=== PATIENT | female | born 1980 | race Caucasian/White ===

== ENCOUNTER 2024-09-01 19:33 | Emergency (ER) | payer MEDICAID, SELFPAY ==
[2024-09-01 19:45] VITALS: BP 140/90; PULSE 75; TEMP 36.5; O2SAT 97; BMI 29.2
--- NOTE | 2024-09-01 19:49 | ECG_ITS ---
[facility] Test Date: 2024-09-01 Pat Name: AMBER MIRZA Department: Room: - Gender: Female Grinder Set Up Operator Jig: : 1980 Requested By: [id number] Order Number: [id number] Reading MD: KITA CHEEMA M.D. Measurements Intervals [place] Rate: 82 P: 56 IA: 146 QRS: 38 QRSD: 80 T: 21 QT: 388 QTc: 427 Interpretive Statements 1100 Sinus rhythm 4564 Twave abnormality, possible lateral ischemia 4664 Twave abnormality, possible inferior ischemia 9150 abnormal ECG No previous ECG available for comparison Electronically Signed On 09-01-2024 20:09:53 EDT by KITA CHEEMA M.D.
--- NOTE | 2024-09-01 19:52 | ED.PSYCH1 ---
Documented by User: ELOINA Mondragon 09/01/24 20:56 HPI - Psych General Chief Complaint: Psychiatric Symptoms Stated Complaint: SUICIDAL Time Seen by Provider: 09/01/24 19:41 Source: Reports patient Mode of arrival: ambulance History of Present Illness HPI Narrative: Patient is a 43-year-old female who presents to the ER with suicidal ideations. Patient states she does not want to live any longer and wants to kill herself. Patient states she has depression and it cannot be treated. She reports having 6 children and one of her children's fathers also committed suicide. She denies a specific plan. She was found with her car pulled off the side of the road and appears to be somewhat intoxicated. She is tearful when discussing her symptoms and getting into an argument with her boyfriend. She does not readily admit or deny alcohol use and continues to cry in the room but is easily redirected to discussion about herself and her family. She reports that her kids are with another male and are safe. She is tearful and expressing that she does not want to live any longer. MD complaint: suicidal ideation and feels depressed Onset (ago): unknown Duration: constant History of same: Yes ( [facility]) Relieving factors: none Exacerbating factors: alcohol Context: recent alcohol abuse Associated psychiatric symptoms: depression Associated symptoms: headache, shortness of breath and nausea Treatments prior to arrival: none If self harm: admits thoughts of self harm Related Data Home Medications ?Medication ?Instructions ?Recorded ?Confirmed citalopram 09/01/24 lisinopril 09/01/24 Allergies Allergy/AdvReac Type Severity Reaction Status Date / Time naproxen Allergy hives Verified 09/01/24 19:56 Review of Systems ROS Constitutional Denies: fever, chills or change in weight Eyes Denies: change in vision or blurry vision Ears, nose, mouth, and throat Denies: throat pain or neck pain Cardiovascular Denies: chest pain, palpitations or edema Respiratory Denies: shortness of breath, cough or wheezing Gastrointestinal Denies: abdominal pain, nausea or vomiting Genitourinary Denies: painful urination Musculoskeletal Denies: back pain, neck pain or extremity pain Integumentary/Breast Denies: rash, itching or redness Neurological Denies: headache Psychiatric Reports: anxiety, hopelessness, loss of interest and suicidal ideation Endocrine Denies: excessive urination Hematologic/Lymphatic Denies: easy bruising Exam Narrative Exam Narrative: Nurses notes and vital signs reviewed and patient is not hypoxic. General: The patient appears tearful, restless but verbally redirectable with conversation Skin: Warm, dry, no pallor noted. No evidence of rash or acute self injury Head: Normocephalic, atraumatic Neck: Supple, trachea mid-line, no tenderness, no lymphadenopathy Eye: Pupils are equal, round and reactive to light, EOMI , bilateral conjunctival injection Ears, Nose, Mouth, and Throat: TM are clear, normal light reflex, oral mucosa is moist, no posterior oropharynx erythema or hypertrophy, uvula is mid-line Cardiovascular: Regular Rate and Rhythm Respiratory: Patient is in no distress, no accessory muscle use, lungs are clear to auscultation, no wheezing, rales or rhonchi. Chest Wall: no tenderness Back: non-tender, no CVA tenderness Musculoskeletal: normal ROM, no tenderness, no swelling GI: Normal bowel sounds, no tenderness to palpation, no masses appreciated. No rebound, guarding, or rigidity noted. Neurological: A&O x4,, suspect alcohol intoxication Psychiatric: Tearful verbally expressing her desire to that she is depressed with suicidal ideations. Citing people in her life who have by suicide. Constitutional Vital Signs, click to edit/add: Last Vital Signs Temp 97.7 F 09/01/24 19:45 Pulse 61 09/02/24 04:10 Resp 16 09/02/24 04:10 BP 170/102 H 09/02/24 04:10 Pulse Ox 100 09/02/24 04:10 O2 Del Method Room Air 09/01/24 19:45 Course Vital Signs Vital signs: Vital Signs Temperature 97.7 F 09/01/24 19:45 Pulse Rate 75 09/01/24 19:45 Respiratory Rate 22 H 09/01/24 19:45 Blood Pressure 140/90 09/01/24 19:45 Pulse Oximetry 97 09/01/24 19:45 Oxygen Delivery Method Room Air 09/01/24 19:45 Temperature 97.7 F 09/01/24 19:45 Pulse Rate 61 09/02/24 04:10 Respiratory Rate 16 09/02/24 04:10 Blood Pressure 170/102 H 09/02/24 04:10 Pulse Oximetry 100 06/09/25 04:10 Oxygen Delivery Method Room Air 09/01/24 19:45 MDM - Psych MDM Narrative Medical decision making narrative: 43-year-old female with self-reported history of depression and suicidal ideation appears possibly intoxicated was found pulled off the side of the road in some grass and brought to the ER by EMS given her verbalization of self-harm. She reports being in an argument with her boyfriend and cites other family members who have by suicide stating that she does not want to live any longer. She is requesting to be released to go to her home in [place] and recites her address but we advised that we would need to get her medically cleared to speak with a mental health counselor and patient is agreeable to be given 50mg IV benadryl ( ativan on back order) to help with her acute anxiety surrounding the situation pending laboratory studies. Potassium was low at 3.0, she is ordered 50 mEq p.o. She is tolerating p.o. fluids. She appears to be calming with the IV Benadryl previously removed all of her leads requesting to speak to her family. Nursing staff did contact her family to make them aware of her presents here. Her EtOH is elevated at 230, we will repeat at 3 AM to assess for medical clearance for psychiatric consultation given her suicidal ideations. Lab Data Labs: Lab Results 09/01/24 09/01/24 09/02/24 Range/Units 19:40 19:50 03:32 WBC 4.9 (4.0-11.0) 10^3/uL RBC 4.34 (4.20-5.40) 10^6/uL Hgb 13.5 (12.0-16.0) g/dL Hct 39.2 (36.0-48.0) % MCV 90.3 (81.0-99.0) fL MCH 31.1 (26.7-34.0) pg MCHC 34.4 (29.9-35.2) g/dL RDW 12.9 (11.0-15.0) % Plt Count 193 (150-450) 10^3/uL MPV 10.2 (9.5-13.5) fL Neut % (Auto) 64.0 (43.0-75.0) % Lymph % (Auto) 26.2 (20.5-60.0) % [place] % (Auto) 8.0 (1.7-12.0) % Eos % (Auto) 1.0 (0.9-7.0) % Baso % (Auto) 0.4 (0.2-2.0) % Neut # (Auto) 3.1 (1.4-6.5) 10^3/uL Lymph # (Auto) 1.3 (1.2-3.8) 10^3/uL [place] # (Auto) 0.4 (0.3-0.8) 10^3/uL Eos # (Auto) 0.1 (0.0-0.7) 10^3/uL Baso # (Auto) 0.0 (0.0-0.1) 10^3/uL Abs Immat Gran (auto) 0.02 (0.00-0.03) 10^3/uL Imm/Tot Granulo (auto) 0.4 (0.0-0.5) % Sodium 144 (136-145) mmol/L Potassium 3.0 L (3.5-5.1) mmol/L Chloride 104 (98-107) mmol/L Carbon Dioxide 24.7 (21.0-32.0) mmol/L Anion Gap 18.3 BUN 8.0 (7.0-18.0) mg/dL Creatinine 0.61 (0.55-1.02) mg/dL Est GFR ( Amer) >60 (>=60 mL/min/1.73m^2) Est GFR (Non-Af Amer) >60 (>=60 mL/min/1.73m^2) BUN/Creatinine Ratio 13.1 Glucose 98 (74-106) mg/dL Calcium 9.1 (8.5-10.1) mg/dL Total Bilirubin 0.7 (0.2-1.0) mg/dL AST 20 (15-37) U/L ALT 27 (14-59) U/L Alkaline Phosphatase 106 (46-116) U/L Total Protein 7.9 (6.4-8.2) g/dL Albumin 3.9 (3.4-5.0) g/dL Globulin 4.0 g/dL Albumin/Globulin Ratio 1.0 Serum HCG, Qual Negative (NEGATIVE) Urine Color Lt. yellow (YELLOW) Urine Clarity Clear (CLEAR) Urine pH 6.0 (5.0-9.0) Ur Specific [place] <=1.005 A (1.005-1.025) Urine Protein Negative (NEG/TRACE) mg/dL Urine Glucose (UA) Negative (NEGATIVE) mg/dL Urine Ketones Negative (NEGATIVE) mg/dL Urine Occult Blood Moderate A (NEGATIVE) Urine Nitrite Negative (NEGATIVE) Urine Bilirubin Negative (NEGATIVE) Urine Urobilinogen 0.2 (0.2-1.0) EU/dL Ur Leukocyte Esterase Negative (NEGATIVE) Urine RBC None seen (0-2) #/HPF Urine WBC None seen (NONE SEEN) #/HPF Ur Squamous Epith Cells None seen (NONE/RARE) #/LPF Urine Crystals None seen (None Seen) #/HPF Urine Bacteria None seen (NONE SEEN) #/HPF Urine Casts None seen (NONE SEEN) #/LPF Urine Mucus None seen (NONE SEEN) Ur Culture Indicated? No Salicylates <2.8 (<=19.9) mg/dL Urine Opiates Screen Negative (NEGATIVE) Ur Buprenorphine Scrn Negative (NEGATIVE) Ur Oxycodone Screen Negative (NEGATIVE) Urine Methadone Screen Negative (NEGATIVE) Acetaminophen <2.0 L (10.0-30.0) ug/mL Ur Barbiturates Screen Negative (NEGATIVE) U Tricyclic Antidepress Negative (NEGATIVE) Ur Phencyclidine Scrn Negative (NEGATIVE) Ur Amphetamines Screen Negative (NEGATIVE) U Methamphetamines Scrn Negative (NEGATIVE) U Benzodiazepines Scrn Negative (NEGATIVE) Urine Cocaine Screen Negative (NEGATIVE) U Cannabinoids Screen Positive A (NEGATIVE) Ethanol Quant 230 49 mg/dL ECG Data Attestation: I personally reviewed and interpreted this ECG as follows: Interpretation: EKG interpretation: Emergency Department physician interpretation, normal sinus rhythm 82bpm , no ectopy, no ST segment elevation, normal axis. Discharge Plan Discharge Patient Disposition: Still a Patient Documented by User: Trent Lazcano MD 06/09/25 06:33 HPI - Psych General Chief Complaint: Psychiatric Symptoms Stated Complaint: SUICIDAL Time Seen by Provider: 09/01/24 19:41 Related Data Home Medications ?Medication ?Instructions ?Recorded ?Confirmed citalopram 09/01/24 lisinopril 09/01/24 Allergies Allergy/AdvReac Type Severity Reaction Status Date / Time naproxen Allergy hives Verified 09/01/24 19:56 Exam Constitutional Vital Signs, click to edit/add: Last Vital Signs Temp 97.7 F 09/01/24 19:45 Pulse 61 09/02/24 04:10 Resp 16 09/02/24 04:10 BP 170/102 H 09/02/24 04:10 Pulse Ox 100 09/02/24 04:10 O2 Del Method Room Air 09/01/24 19:45 Course Vital Signs Vital signs: Vital Signs Temperature 97.7 F 09/01/24 19:45 Pulse Rate 75 09/01/24 19:45 Respiratory Rate 22 H 09/01/24 19:45 Blood Pressure 140/90 09/01/24 19:45 Pulse Oximetry 97 09/01/24 19:45 Oxygen Delivery Method Room Air 09/01/24 19:45 Temperature 97.7 F 09/01/24 19:45 Pulse Rate 61 09/02/24 04:10 Respiratory Rate 16 09/02/24 04:10 Blood Pressure 170/102 H 09/02/24 04:10 Pulse Oximetry 100 09/02/24 04:10 Oxygen Delivery Method Room Air 09/01/24 19:45 MDM - Psych MDM Narrative Medical decision making narrative: 43-year-old female with self-reported history of depression and suicidal ideation appears possibly intoxicated was found pulled off the side of the road in some grass and brought to the ER by EMS given her verbalization of self-harm. She reports being in an argument with her boyfriend and cites other family members who have by suicide stating that she does not want to live any longer. She is requesting to be released to go to her home in [place] and recites her address but we advised that we would need to get her medically cleared to speak with a mental health counselor and patient is agreeable to be given 50mg IV benadryl ( ativan on back order) to help with her acute anxiety surrounding the situation pending laboratory studies. Potassium was low at 3.0, she is ordered 50 mEq p.o. She is tolerating p.o. fluids. She appears to be calming with the IV Benadryl previously removed all of her leads requesting to speak to her family. Nursing staff did contact her family to make them aware of her presents here. Her EtOH is elevated at 230, we will repeat at 3 AM to assess for medical clearance for psychiatric consultation given her suicidal ideations. patient has remained cooperative and resting. waiting for her to speak to mental health later this AM. Care transferred to [facility] physician at change of shift Lab Data Labs: Lab Results 09/01/24 09/01/24 09/02/24 Range/Units 19:40 19:50 03:32 WBC 4.9 (4.0-11.0) 10^3/uL RBC 4.34 (4.20-5.40) 10^6/uL Hgb 13.5 (12.0-16.0) g/dL Hct 39.2 (36.0-48.0) % MCV 90.3 (81.0-99.0) fL MCH 31.1 (26.7-34.0) pg MCHC 34.4 (29.9-35.2) g/dL RDW 12.9 (11.0-15.0) % Plt Count 193 (150-450) 10^3/uL MPV 10.2 (9.5-13.5) fL Neut % (Auto) 64.0 (43.0-75.0) % Lymph % (Auto) 26.2 (20.5-60.0) % [place] % (Auto) 8.0 (1.7-12.0) % Eos % (Auto) 1.0 (0.9-7.0) % Baso % (Auto) 0.4 (0.2-2.0) % Neut # (Auto) 3.1 (1.4-6.5) 10^3/uL Lymph # (Auto) 1.3 (1.2-3.8) 10^3/uL [place] # (Auto) 0.4 (0.3-0.8) 10^3/uL Eos # (Auto) 0.1 (0.0-0.7) 10^3/uL Baso # (Auto) 0.0 (0.0-0.1) 10^3/uL Abs Immat Gran (auto) 0.02 (0.00-0.03) 10^3/uL Imm/Tot Granulo (auto) 0.4 (0.0-0.5) % Sodium 144 (136-145) mmol/L Potassium 3.0 L (3.5-5.1) mmol/L Chloride 104 (98-107) mmol/L Carbon Dioxide 24.7 (21.0-32.0) mmol/L Anion Gap 18.3 BUN 8.0 (7.0-18.0) mg/dL Creatinine 0.61 (0.55-1.02) mg/dL Est GFR ( Amer) >60 (>=60 mL/min/1.73m^2) Est GFR (Non-Af Amer) >60 (>=60 mL/min/1.73m^2) BUN/Creatinine Ratio 13.1 Glucose 98 (74-106) mg/dL Calcium 9.1 (8.5-10.1) mg/dL Total Bilirubin 0.7 (0.2-1.0) mg/dL AST 20 (15-37) U/L ALT 27 (14-59) U/L Alkaline Phosphatase 106 (46-116) U/L Total Protein 7.9 (6.4-8.2) g/dL Albumin 3.9 (3.4-5.0) g/dL Globulin 4.0 g/dL Albumin/Globulin Ratio 1.0 Serum HCG, Qual Negative (NEGATIVE) Urine Color Lt. yellow (YELLOW) Urine Clarity Clear (CLEAR) Urine pH 6.0 (5.0-9.0) Ur Specific [place] <=1.005 A (1.005-1.025) Urine Protein Negative (NEG/TRACE) mg/dL Urine Glucose (UA) Negative (NEGATIVE) mg/dL Urine Ketones Negative (NEGATIVE) mg/dL Urine Occult Blood Moderate A (NEGATIVE) Urine Nitrite Negative (NEGATIVE) Urine Bilirubin Negative (NEGATIVE) Urine Urobilinogen 0.2 (0.2-1.0) EU/dL Ur Leukocyte Esterase Negative (NEGATIVE) Urine RBC None seen (0-2) #/HPF Urine WBC None seen (NONE SEEN) #/HPF Ur Squamous Epith Cells None seen (NONE/RARE) #/LPF Urine Crystals None seen (None Seen) #/HPF Urine Bacteria None seen (NONE SEEN) #/HPF Urine Casts None seen (NONE SEEN) #/LPF Urine Mucus None seen (NONE SEEN) Ur Culture Indicated? No Salicylates <2.8 (<=19.9) mg/dL Urine Opiates Screen Negative (NEGATIVE) Ur Buprenorphine Scrn Negative (NEGATIVE) Ur Oxycodone Screen Negative (NEGATIVE) Urine Methadone Screen Negative (NEGATIVE) Acetaminophen <2.0 L (10.0-30.0) ug/mL Ur Barbiturates Screen Negative (NEGATIVE) U Tricyclic Antidepress Negative (NEGATIVE) Ur Phencyclidine Scrn Negative (NEGATIVE) Ur Amphetamines Screen Negative (NEGATIVE) U Methamphetamines Scrn Negative (NEGATIVE) U Benzodiazepines Scrn Negative (NEGATIVE) Urine Cocaine Screen Negative (NEGATIVE) U Cannabinoids Screen Positive A (NEGATIVE) Ethanol Quant 230 49 mg/dL Discharge Plan Discharge Patient Disposition: Still a Patient
[2024-09-01 20:07] LABS: Basophils Percent Auto 0.4 % (0.2-2.0); Eosinophils Absolute Auto 0.1 10^3/uL (0.0-0.7); Hematocrit 39.2 % (36.0-48.0); Hemoglobin 13.5 g/dL (12.0-16.0); Immature Granulocytes Abs Auto 0.02 10^3/uL (0.00-0.03); Immature Granulocytes Pct Auto 0.4 % (0.0-0.5); Lymphocytes Absolute Auto 1.3 10^3/uL (1.2-3.8); Lymphocytes Percent Auto 26.2 % (20.5-60.0); Mean Corpuscular HGB Conc 34.4 g/dL (29.9-35.2); Mean Corpuscular Hemoglobin 31.1 pg (26.7-34.0); Mean Corpuscular Volume 90.3 fL (81.0-99.0); Mean Platelet Volume 10.2 fL (9.5-13.5); Monocytes Absolute Auto 0.4 10^3/uL (0.3-0.8); Neutrophils Absolute Auto 3.1 10^3/uL (1.4-6.5); Platelet Count 193 10^3/uL (150-450); Red Blood Count 4.34 10^6/uL (4.20-5.40); Red Cell Distribution Width 12.9 % (11.0-15.0); White Blood Count 4.9 10^3/uL (4.0-11.0)
[2024-09-01 20:10] LABS: Bilirubin Urine NEGATIVE (NEGATIVE); Blood Urine MODERATE (NEGATIVE); Clarity Urine CLEAR (CLEAR); Color Urine LT. YELLOW (YELLOW); Glucose Urine UA NEGATIVE (NEGATIVE); Ketones Urine NEGATIVE (NEGATIVE); Leukocyte Esterase Urine NEGATIVE (NEGATIVE); Nitrite Urine NEGATIVE (NEGATIVE); Protein Urine NEGATIVE (NEG/TRACE); Specific Gravity Urine <=1.005 (1.005-1.025); Urobilinogen Urine 0.2 EU/dL (0.2-1.0)
[2024-09-01 20:16] LABS: Bacteria Urine NONE SEEN #/HPF (NONE SEEN); Cast Seen? NONE SEEN #/LPF (NONE SEEN); Crystals Seen? None Seen #/HPF (None Seen); Mucus Urine NONE SEEN (NONE SEEN); RBC Urine NONE SEEN #/HPF (0-2); Squamous Epithelial Cell Urine NONE SEEN #/LPF (NONE/RARE); Urine Culture Indicated NO; WBC Urine NONE SEEN #/HPF (NONE SEEN)
[2024-09-01 20:17] LABS: HCG Qualitative NEGATIVE (NEGATIVE); Internal Control Within Normal Limits
[2024-09-01 20:18] LABS: Amphetamine Screen Urine NEGATIVE (NEGATIVE); Barbiturates Screen Urine NEGATIVE (NEGATIVE); Benzodiazepines Screen Urine NEGATIVE (NEGATIVE); Buprenorphine Screen Urine NEGATIVE (NEGATIVE); Cannabinoid Screen Urine POSITIVE (NEGATIVE); Cocaine Screen Urine NEGATIVE (NEGATIVE); Methadone Screen Urine NEGATIVE (NEGATIVE); Methamphetamines Screen Urine NEGATIVE (NEGATIVE); Opiate Screen Urine NEGATIVE (NEGATIVE); Oxycodone Screen Urine NEGATIVE (NEGATIVE); Phencyclidine Screen Urine NEGATIVE (NEGATIVE); Tricyclic Antidepressant Urine NEGATIVE (NEGATIVE)
[2024-09-01 20:26] LABS: Alanine Aminotransferase 27 U/L (14-59); Albumin Level 3.9 g/dL (3.4-5.0); Alkaline Phosphatase 106 U/L (46-116); Anion Gap 18.3; Aspartate Amino Transferase 20 U/L (15-37); BUN Creatinine Ratio 13.1; Bilirubin Total 0.7 mg/dL (0.2-1.0); Calcium 9.1 mg/dL (8.5-10.1); Carbon Dioxide 24.7 mmol/L (21.0-32.0); Chloride 104 mmol/L (98-107); Estimated GFR (African America >60 (>=60 mL/min/1.73m^2); Estimated GFR (Non-African Ame >60 (>=60 mL/min/1.73m^2); Ethanol 230 mg/dL; Glucose 98 mg/dL (74-106); Salicylate <2.8 mg/dL (<=19.9); Sodium 144 mmol/L (136-145); Total Protein 7.9 g/dL (6.4-8.2)
[2024-09-01 20:28] LABS: Acetaminophen <2.0 ug/mL (10.0-30.0)
[2024-09-01] MEDS: DIPHENHYDRAMINE HCL 50 MG/ML VIAL IVP (20:28)
--- OUTSIDE RECORDS SUMMARY | 2024-09-01 20:33 | XMS_ITS | Encounter Summary ---
Author Organization [facility] Address [address] [place] [address] Care Team Providers Care Shirt Sewer Name Role Phone SharonaAugieharley ENGLAND Primary Care Provider [phone] Brittany Moss PENSIONHOLDER INFORMATION CLERK Unavailable Unavailable Khushi Hsu NP Primary Care Provider [phone] Source Comments In the event this information is protected by the Federal Confidentiality of Alcohol and Drug AbusePatient Records regulations: The Federal rules restrict any use of the information to criminally investigate or prosecute any alcohol or drug abuse patient.[facility] Encounter Details Date Type Department Care Team (Late st Contact Info) Description 04/21/2021 [place] [address] Provider, [facility] MRI Screening Questionnaire Completion Required Social History Tobacco Use Types Packs/Day Years Used Date Smoking Tobacco: Never Smokeless Tobacco: Never Alcohol Use Standard Drinks/Week Comments Not Currently 0 (1 standard drink = 0.6 oz pur e alcohol) Overall Financial Resource Strain (CARDIA) Answe r Date Recorded How hard is it for you to pa y for the very basics like food, housing, medical care, and heating? Not hard at all 12/25/2019 PHQ-2 Answer Date Recorded PHQ-2 score 2 11/18/2020 Hunger Vital Sign Answer Date Recorded Within the past 12 months, y ou worried that your food would run out before you got the money to buy more. Never true 12/25/19 20 Within the past 12 months, t he food you bought just didn't last and you didn't have money to get more. Never true 12/25/2019 PRAPARE - Transportation Answer Date Re corded In the past 12 months, has l ack of transportation kept you from medical appointments or from getting medications? No 11/27 In the past 12 months, has l ack of transportation kept you from meetings, work, or from getting things needed for daily living? No 12/25/2019 Area Deprivation Index Answer Date Sohail rded National Score (1-100), lower number is lower ri sk Not on file 03/01/2020 State Score (1-10), lower number is lower risk N ot on file 03/01/2020 Data from: https://www.neighborhoodatlas.medicine.[facility].edu/. Last address used for calculation Not on file 03/01/2020 Comments No Sex and Gender Information Value Date Recorded Sex Assigned at Female 04/09/2021 3:05 AM EST Legal Sex Female 8:05 AM EST Gender Identity Female 04/09/2021 3:05 AM EST Sexual Orientation Straight 04/09/2021 3: 05 AM EST documented as of this encounter Functional Status * Are you deaf or do you have serious difficulty hearing? Answer Date of Assessment Author No 10/07/2020 5:48 PM Ally Ocasio RN * Are you blind or do you have serious difficulty seeing, even when wearing glasses? Answer Date of Assessment Author No 10/07/2020 5:48 PM Ally Ocasio RN * Do you have serious difficulty walking or climbing stairs? Answer Date of Assessment Author No 10/07/2020 5:48 PM Ally Ocasio RN * Do you have difficulty dressing or bathing? Answer Date of Assessment Author No 10/07/2020 5:48 PM Ally Ocasio RN * Because of a physical, mental, or emotional condition, do you have difficulty doing errands alone such as visiting a doctor's office or shopping? Answer Date of Assessment Author No 10/07/2020 5:48 PM EDT Ally Contreras RN documented as of this encounter Mental Status * Because of a physical, mental, or emotional condition, do you have serious difficulty concentrating, remembering, or making decisions? Answer Entry Date Author No 10/07/2020 5:48 PM EDT Ally Contreras RN documented in this encounter Plan of Treatment Upcoming Encounters Date Type Department Care Team (Latest Contact Info) Description 10/24/2024 3:00 PM EDT Visit (SP) Office Hematology/Oncology [address] [place] [address] Wu Bustos MD [address] [place] [address] [place] [address] NEW PATIENT ADDED ON PER DR BUSTOS // AGREED TO SEE PATIENT documented as of this encounter Visit Diagnoses Not on filedocumented in this encounter Care Teams Shirt Sewer Relationship Specialty Start Date End Date Mercedes Tabor CNP [address] [place] [address] PCP - General Internal Medicine 11/12/20 07/27/21 Khushi Hsu REGULATORY COMPLIANCE MANAGER [address] [place] [address] PCP - General 07/28/21 Brittany Moss LSW Dry Cleaning Counter Clerk 12/02/20 documented as of this encounter
--- OUTSIDE RECORDS SUMMARY | 2024-09-01 20:33 | XMS_ITS | Encounter Summary ---
Author Organization [facility] Address [address] [place] [address] Care Team Providers Care Mononitrotoluene Operator Name Role Phone Pcp, Betina LIME SLAKER Primary Care Provider UnavailMercedes Medrano CNP Primary Care Provider [phone] Brittany MossW Unavailable Unavailable Khushi Hsu NP Primary Care Provider [phone] Source Comments In the event this information is protected by the Federal Confidentiality of Alcohol and Drug AbusePatient Records regulations: The Federal rules restrict any use of the information to criminally investigate or prosecute any alcohol or drug abuse patient.[facility] Encounter Details Date Type Department Care Team (Late st Contact Info) Description 09/15/2020 Patient Msg [facility] [address] [place] [address] Latisha Aponte LSW Making contact Social History Tobacco Use Types Packs/Day Years [...] 12/25/2019 PHQ-2 Answer Date Recorded PHQ-2 score 5 08/19/2020 Hunger Vital Sign Answer Date Recorded Within [...] N ot on file 03/01/2020 Data from: https://www.neighborhoodatlas.medicine.[facility]/. Last address used for calculation Not on file 03/01/2020 Comments No Sex and Gender Information Value Date Recorded Sex Assigned at Female 04/09/2021 3:05 AM EST Legal Sex Female 8:05 AM EST Gender Identity Female 04/09/2021 3:05 AM EST Sexual Orientation Straight 04/09/2021 3: 05 AM EST COVID-19 Exposure Response Date Recorded In the last month, have you been in contact with someone who was confirmed or suspected to have Coronavirus / COVID-19? No / Unsure 09/09/2020 3:24 PM EDT documented as of this encounter Functional Status * Are you deaf or do you have serious difficulty hearing? Answer Date of Assessment Author No 01/05/2020 4:41 PM EDT Milagros Michelle (Rn), RN * Are you blind or do you have serious difficulty seeing, even when wearing glasses? Answer Date of Assessment Author No 01/05/2020 4:41 PM EDT Milagros Michelle (Rn), RN * Do you have serious difficulty walking or climbing stairs? Answer Date of Assessment Author No 01/05/2020 4:41 PM EDT Milagros Michelle (Rn), RN * Do you have difficulty dressing or bathing? Answer Date of Assessment Author No 01/05/2020 4:41 PM EDT Milagros Michelle (Rn), RN * Because of a physical, mental, or emotional condition, do you have difficulty doing errands alone such as visiting a doctor's office or shopping? Answer Date of Assessment Author No 01/05/2020 4:41 PM EDT Milagros Michelle (Rn), RN documented as of this encounter Mental Status * Because of a physical, mental, or emotional condition, do you have serious difficulty concentrating, remembering, or making decisions? Answer Entry Date Author No 01/05/2020 4:41 PM LUIST Milagros Michelle (Rn), RN documented in this encounter Plan of Treatment Upcoming Encounters Date Type Department Care Team (Latest Contact Info) Description 10/24/2024 3:00 PM EDT Visit (SP) Office Hematology/Oncology [address] [place] [address] [place], [place] [id number] Wu Bustos MD [address] [place] [address] [place] [address] NEW PATIENT ADDED ON PER DR BUSTOS // AGREED TO SEE PATIENT documented as of this encounter Visit Diagnoses Not on filedocumented in this encounter Care Teams Mononitrotoluene Operator Relationship Specialty Start Date End Date Pcp, LES Moffett PCP - General 08/28/20 11/11/20 Mercedes Tabor, DEVELOPMENT EDUCATOR [address] [address] PCP - General Internal Medicine 11/12/20 07/27/21 Khushi Hsu, PAINTING INSTRUCTOR [address] [place] [address] PCP - General 07/28/21 Brittany Moss LSW Security Associate 12/02/20 documented as of this encounter
--- OUTSIDE RECORDS SUMMARY | 2024-09-01 20:33 | XMS_ITS | Clinical Summary ---
Author Organization [facility] Address [address] [place] [address] Care Team Providers Care Printing Pressman Name Role Phone Brittany Moss Unavailable Unavailable Khushi Hsu INFORMATION MANAGEMENT MANAGER Primary Care Provider [phone] Allergies No known active allergies Medications clonazePAM (KLONOPIN) 0.5 mg tablet Take 0.5 mg by mouth twice daily as needed. Active docusate sodium (COLACE) 100 mg capsule Take 1 capsule by mouth twice daily as needed for constipation. (Take twice daily while you are on pain medications to prevent constipation). 30 capsule 1 Active diclofenac, EC, (VOLTAREN) 75 mg EC tablet Take 1 tablet by mouth twice daily as needed (for pain.). 28 tablet 1 Active citalopram (CELEXA) 20 mg tablet Take 20 mg by mouth daily at bedtime. Take 1 tablet at bedtime with celexa 10 mg to =30 mg 1 Active lisinopril (ZESTRIL, PRINIVIL) 10 mg tablet Take 1 tablet by mouth once daily. 1 Active citalopram hydrobromide (CELEXA) 10 mg tablet Take 10 mg by mouth once daily. 1 tablet at bedtime with celexa 20 mg tablet to =30mg Active ondansetron (ZOFRAN) 4 mg tablet Take 1 tablet by mouth every 8 hours as needed for nausea/vomiting . 30 tablet 1 Active CARAFATE 100 mg/mL suspension 1 Active gabapentin (NEURONTIN) 300 mg capsule TAKE 1 CAPSULE BY MOUTH ONCE DAILY FOR 3 DAYS THEN 1 CAPSULE TWICE DAILY FOR 3 DAYS THEN UPDATE 1 Active oxyCODONE-acetam inophen (PERCOCET 10) 10-325 mg tablet Take 1 tablet by mouth every 6 hours as needed. 1 Active hydroCHLOROthiaz chadd 12.5 mg tablet take 1 tablet by mouth once daily in the morning for 30 days 3 Active baclofen 10 mg tablet 1 tablet as needed Orally Twice a day 3 Active naproxen (NAPROSYN) 500 mg tablet 1 tablet with food as needed Orally once a day 3 Active Active Problems Problem Noted Date Diagnosed Date Obesity, Class I, BMI 30-34.9 10/06/2020 Acute postoperative pain 01/02/2020 Assessment & Plan (10/06/2020 9:22 AM EDT): Assessment: Acute post-operative pain PLAN: Pain control continue present analgesic regimen Monitor Assessment & Plan (01/02/2020 11:10 AM EDT): Assessment: Acute postop pain PLAN: -PT/OT eval. -Monitor: signs, symptoms, disease progression, disease regression. -Evaluate: test results, medication effectiveness, response to treatment. -Pain control: analgesics titrated per consultation with Dr. Prashanth Tobar -Plan discussed with Dr. 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 -Ambulate pt 3-4 x daily as able. -Monitor: signs, symptoms, disease progression, disease regression. -Evaluate: test results, medication effectiveness, response to treatment. -Pain control: analgesics titrated per consultation with Dr. Prashanth Tobar -Plan discussed with Dr. Prashanth TAPIA planning. Planned Date of Discharge: Approximately: Monday Discharge Disposition: [facility] Assessment & Plan (01/02/2020 10:47 AM EDT): Assessment: Thoracic spine mass with cord compresion PLAN: -PT/OT continue -Out of bed to chair for meals. -Ambulate pt 3-4 x daily as able. -Monitor: signs, symptoms, disease progression, disease regression. -Evaluate: test results, medication effectiveness, response to treatment. -Pain control: analgesics titrated per consultation with Dr. Prashanth Tobar -Plan discussed with Dr. Prashanth TAPIA planning. Planned Date of Discharge: Approximately 3 - 5 days Discharge Disposition: Unknown Assessment & Plan (01/01/2020 11:40 AM EDT): Assessment: Thoracic spine mass with cord compresion PLAN: -NPO for OR today. -Out of bed to chair for meals. -Ambulate pt 3-4 x daily as able. -Monitor: signs, symptoms, disease progression, disease regression. -Evaluate: test results, medication effectiveness, response to treatment. -Pain control: analgesics titrated per consultation with Dr. Prashanth Tobar -Plan discussed with Dr. Prashanth TAPIA planning. Planned Date of Discharge: Approximately 3 - 5 days Discharge Disposition: Unknown Assessment & Plan (12/31/2019 3:39 PM EDT): Assessment: Thoracic spine mass with cord compresion PLAN: -NPO for OR today. -Out of bed to chair for meals. -Ambulate pt 3-4 x daily as able. -Monitor: signs, symptoms, disease progression, disease regression. -Evaluate: test results, medication effectiveness, response to treatment. -Pain control: analgesics titrated per consultation with Dr. Prashanth Tobar -Plan discussed with Dr. Prashanth TAPIA planning. Planned Date of Discharge: Approximately 3 - 5 days Discharge Disposition: Unknown Assessment & Plan (12/30/2019 9:48 AM EDT): Assessment: Thoracic spine mass with cord compresion PLAN: -NPO for OR today. -Out of bed to chair for meals. -Ambulate pt 3-4 x daily as able. -Monitor: signs, symptoms, disease progression, disease regression. -Evaluate: test results, medication effectiveness, response to treatment. -Pain control: analgesics titrated per consultation with Dr. Prashanth Tobar -Plan discussed with Dr. Prashanth TAPIA planning. Planned Date of Discharge: Approximately 3 - 5 days Discharge Disposition: Unknown Assessment & Plan (12/27/2019 1:20 PM EDT): Assessment: Thoracic spine mass with cord compresion PLAN: -Out of bed to chair for meals. -Ambulate pt 3-4 x daily as able. -Monitor: signs, symptoms, disease progression, disease regression. -Evaluate: test results, medication effectiveness, response to treatment. -Pain control: analgesics titrated per consultation with Dr. Prashanth Tobar -Plan discussed with Dr. Prashanth TAPIA planning. Planned Date of Discharge: Approximately 3 - 5 days Discharge Disposition: Unknown Assessment & Plan (12/26/2019 12:36 PM EDT): Assessment: Thoracic spine mass with cord compresion PLAN: -Out of bed to chair for meals. -Ambulate pt 3-4 x daily as able. -Monitor: signs, symptoms, disease progression, disease regression. -Evaluate: test results, medication effectiveness, response to treatment. -Pain control: analgesics titrated per consultation with Dr. Prashanth Tobar -Plan discussed with Dr. Prashanth TAPIA planning. Planned Date of Discharge: Approximately 3 - 5 days Discharge Disposition: Unknown Assessment & Plan (12/25/2019 3:49 AM EDT): Assessment: BLE weakness and numbness: tumor vs abscess MRI: Large homogeneously enhancing dural or epidural masslike abnormality measuring around 6 cm in length and 12.5 mm in thickness, located along the posterior aspect of the spinal canal from T7 through T10 causing severe anterior displacement and compression of the spinal cord There is severe edema signal and enhancement within the spinal cord at these levels, perhaps related to cord compression and edema and myelopathy The appearance is most suggestive of a large meningioma. Hematoma, infection, lymphoproliferative disorder or metastatic disease is considered less likely PLAN: -Neurosurgery to evaluate patient. -Primary team recommended to continue vancomycin, flagyl and cefepime. -higher MAP goals Anxiety 12/25/2019 Assessment & Plan (10/06/2020 9:22 AM EDT): Assessment: POA PLAN: Continue home Rx/regimen Assessment & Plan (12/25/2019 3:32 AM EDT): Assessment: Hx of anxiety/depression on Citalopram PLAN: -Continue home Citalopram HTN (hypertension) 12/25/2019 Assessment & Plan (09/10/2020 6:12 AM EDT): 194/107 today, asymptomatic, no current meds Upon reviewing BP results since 10/2019, BP has been running high consistently since then Discussed with patient that BP needs to be better controlled, offered to set up primary care at [facility] but patient prefers to see home PCP this week. Given letter to give to PCP requesting office note and plan to be faxed back to us. Understands elective surgery could be canceled if BP not better controlled Advised to go to ER if developing any symptoms such as CP, SOB, TO, blurry vision. Assessment & Plan (01/02/2020 10:47 AM EDT): Assessment: HTN PLAN: -Hydralazine 12.5 mg PO q8h PRN for SBP > 160. -Monitor: signs, symptoms, disease progression, disease regression. -Evaluate: medication effectiveness, response to treatment. Assessment & Plan (12/31/2019 3:39 PM EDT): Assessment: HTN PLAN: -Hydralazine 12.5 mg PO q8h PRN for SBP > 160. -Monitor: signs, symptoms, disease progression, disease regression. -Evaluate: medication effectiveness, response to treatment. Assessment & Plan (12/30/2019 9:48 AM EDT): Assessment: HTN PLAN: -Hydralazine 12.5 mg PO q8h PRN for SBP > 160. -Monitor: signs, symptoms, disease progression, disease regression. -Evaluate: medication effectiveness, response to treatment. Assessment & Plan (12/27/2019 1:20 PM EDT): Assessment: HTN PLAN: -Hydralazine 12.5 mg PO q8h PRN for SBP > 160. -Monitor: signs, symptoms, disease progression, disease regression. -Evaluate: medication effectiveness, response to treatment. Assessment & Plan (12/26/2019 12:26 PM EDT): Assessment: HTN PLAN: -Hydralazine 12.5 mg PO q8h PRN for SBP > 160. -Monitor: signs, symptoms, disease progression, disease regression. -Evaluate: medication effectiveness, response to treatment. Assessment & Plan (12/25/2019 3:49 AM EDT): Assessment: not on any medications for HTN at home. PLAN: -Continue to monitor -MAP goal >65 -PRN Labetalol. Tooth infection 12/25/2019 Assessment & Plan (01/02/2020 10:48 AM EDT): Assessment: Dental abscess PLAN: -f/u on ID recs. Appreciate your assistance. -Continue Augmentin 875 mg PO bid. -Monitor: signs, symptoms, disease progression, disease regression. -Evaluate: medication effectiveness, response to treatment. Assessment & Plan (12/31/2019 3:39 PM EDT): Assessment: Dental abscess PLAN: -f/u on ID recs. Appreciate your assistance. -Continue Augmentin 875 mg PO bid. -Monitor: signs, symptoms, disease progression, disease regression. -Evaluate: medication effectiveness, response to treatment. Assessment & Plan (12/30/2019 9:49 AM EDT): Assessment: Dental abscess PLAN: -f/u on ID recs. Appreciate your assistance. -Continue Augmentin 875 mg PO bid. -Monitor: signs, symptoms, disease progression, disease regression. -Evaluate: medication effectiveness, response to treatment. Assessment & Plan (12/27/2019 1:20 PM EDT): Assessment: Dental abscess PLAN: -f/u on ID recs. Appreciate your assistance. -Continue IV cefepime and Flagyl. -Monitor: signs, symptoms, disease progression, disease regression. -Evaluate: medication effectiveness, response to treatment. Assessment & Plan (12/26/2019 12:29 PM EDT): Assessment: Dental abscess PLAN: -f/u on ID recs. Appreciate your assistance. -Continue IV cefepime and Flagyl. -Monitor: signs, symptoms, disease progression, disease regression. -Evaluate: medication effectiveness, response to treatment. Assessment & Plan (12/25/2019 3:56 AM EDT): Assessment: Reports being recently treated for tooth infection and UTI with Bactrim. Resolved Problems Problem Noted Date Diagnosed Date Resolved Date E. coli UTI (urinary tract infection) 12/26/2019 03/04/2021 Assessment & Plan (01/03/2020 9:27 AM EDT): Assessment: E. Coli UTI PLAN: -UCx from [facility] on 12/24/2019 is + for > 100,000 E. Coli resistant to ampicillin and amp/sulbactam. -bladder scan to assess for urinary retention -Repeat UA w/ reflex cx. -f/u on ID recs. Appreciate your assistance. -Monitor: signs, symptoms, disease progression, disease regression. -Evaluate: test results, medication effectiveness, response to treatment. Assessment & Plan (12/27/2019 1:20 PM EDT): Assessment: E. Coli UTI PLAN: -UCx from [facility] on 12/24/2019 is + for > 100,000 E. Coli resistant to ampicillin and amp/sulbactam. -bladder scan to assess for urinary retention -Repeat UA w/ reflex cx. -f/u on ID recs. Appreciate your assistance. -Monitor: signs, symptoms, disease progression, disease regression. -Evaluate: test results, medication effectiveness, response to treatment. Assessment & Plan (12/26/2019 12:32 PM EDT): Assessment: E. Coli UTI PLAN: -UCx from [facility] on 12/24/2019 is + for > 100,000 E. Coli resistant to ampicillin and amp/sulbactam. -DC Ros[place]. -Repeat UA w/ reflex cx. -f/u on ID recs. Appreciate your assistance. -Monitor: signs, symptoms, disease progression, disease regression. -Evaluate: test results, medication effectiveness, response to treatment. Anemia 12/25/2019 12/27/2019 Assessment & Plan (12/26/2019 12:26 PM EDT): Assessment: Anemia PLAN: -Anemia w/u labs. -Monitor: signs, symptoms, disease progression, disease regression. -Evaluate: test results, medication effectiveness, response to treatment. Assessment & Plan (12/25/2019 3:35 AM EDT): Assessment: Hb 10 at OSH PLAN: -CBC -Transfuse for Hb<7 Family History Medical History Relation Comments Cervical Cancer Mother GI cancer Paternal Grandmother Anesthesia Problems No Family History Relation Status Comments Mother Paternal Grandmother Social History Tobacco Use Types Packs/Day Years [...] PHQ-2 Answer Date Recorded PHQ-2 score 2 06/14/2021 Hunger Vital Sign Answer Date Recorded Within [...] (1-100), lower number is lower ri sk 52 10/31/2022 State Score (1-10), lower number is lower risk 3 10/31/2022 Data from: https://www.neighborhoodatlas.medicine.[facility]/. Last address used for calculation [address] 10/31/2022 Comments No Sex and Gender Information Value Date Recorded Sex Assigned at Female 04/09/2021 3:05 AM EST Legal Sex Female 8:05 AM EST Gender Identity Female 04/09/2021 3:05 AM EST Sexual Orientation Straight 04/09/2021 3: 05 AM EST Last Filed Vital Signs Vital Sign Reading Time Taken Comments Blood Pressure 121/70 10/31/2022 3:09 PM EDT Pulse 64 10/31/2022 3:09 PM EDT Temperature 36.6 C (97.9 F) 10/31/2022 3:09 PM EDT Respiratory Rate 18 10/31/2022 3:09 PM EDT Oxygen Saturation 100% 10/31/2022 3:09 PM EDT RA Inhaled Oxygen Concentration - - Weight 80.2 kg (176 lb 14.4 oz) 10/31/2022 3:09 PM EDT Height 160 cm (5' 3 ) 10/31/2022 3:09 PM EDT Body Mass Index 31.34 10/31/2022 3:09 PM EDT Plan of Treatment Upcoming Encounters Date Type Department Care Team (Latest Contact Info) Description 10/24/2024 3:00 PM EDT Visit (SP) Office Hematology/Oncology [address] [place] [address] [place] [address] Wu Bustos MD [address] [place] [address] [place] [address] NEW PATIENT ADDED ON PER DR BUSTOS // AGREED TO SEE PATIENT Health Maintenance Due Date Last Done Comments Annual PCP Team Chronic Disease Visit 09/03/1999 BP Controlled (<130/80) 09/03/1999 Depression Screening 09/03/1999 DTaP,Tdap,Td Vaccine (1 - Tdap) 2000 Hepatitis B Vaccine (1 of 3 - 19+ 3-dose series) 09/02 Cervical Cancer Screening 2002 Mammogram Screening 2021 Covid-19 Vaccine ( season) 2023 Influenza Vaccine (Season Ended) 2024 Hepatitis C Screening Completed 06/08/2006 HIV Screening Completed 12/27/2019 Procedures Procedure Name Priority Date/Time Associated Diagnosis Comments HIV 1/2 COMBO WITH REFLEX TO DIFFERENTIATION Routine 12/27/2019 10:15 PM EDT HEP REMOTE PANEL BL Routine 06/08/2006 6 :47 PM EDT Anemia Nos Nonspecif Skin Erupt Nec Abd/Pel Swell/Mass/Lump General from Last 3 Months or Most Recently Relevant to Health Maintenance Results * HIV 1 2 COMBO(AG/AB),WITH REFLEX TO DIFFERENTIATION (12/27/2019 10:15 PM EDT) HIV 12 Combo (Ag/Ab) Non Reactive Non Reactive 12/29/2019 2:30 PM EDT [facility] HIV-1/2 AB Test Not Indicated 12/29/2019 2:30 PM EDT [facility] HIV Interpretation Negative 12/29/2019 2:30 PM EDT [facility] Comment: No evidence of HIV-1 or HIV-2 infection. Should recent infection be suspected, repeat testing may be considered 2-3 weeks after this draw. HIV Information: [place] Rev. Code 3701.243(E): This information has been disclosed to you from confidential records protected from disclosure by state law. You shall make no further disclosure of this information without the specific, written, and informed release of the individual to whom it pertains or as otherwise permitted by state law. A general authorization for the release of medical or other information is not sufficient for the purpose of the release of HIV test results or diagnoses. Blood BLOOD SPECIMEN / Unknown 12/27/2019 10:15 PM EDT 12/27/2019 10:16 PM EDT us Khushi Marrufo MD LABORATORY Final Result [facility] [address] [place] [address] [facility] [address] [place] [address] * HEP REMOTE PANEL BL (06/08/2006 6:47 PM EDT) Hep B Core Ab, Total Negative NEG [facility] Hep C Antibody IA Negative NEG [facility] HBsAg Negative NEG [facility] Hep B Surface Ab, Qual Negative NEG [facility] Comment: A negative Hepatitis B Surface Antibody is indicative of: 1)no prior exposure to HBV, 2)lack of antibody response to an acute or chronic HBV infection, 3)lack of antibody response to HBV vaccination, or, 4)loss of immunity that followed either vaccination or infection. Blood specimen (specimen) BLOOD SPECIMEN / Unknown 06/08/2006 6:47 PM EDT us Tomasa Knox MD LABORATORY Final Res ult [facility] [address] [place] [address] from Last 3 Months or Most Recently Relevant to Health Maintenance Insurance [employer] [place] Advance Directives Documents on File Type Date Recorded Patient Edge Stitcher Expl anation Advance Directive(s) 12/10/2020 11:15 AM A dvance Directives Care Teams Printing Pressman Relationship Specialty Start Date End Date Khushi Hsu INFORMATION MANAGEMENT MANAGER [address], [facility] [place] [address] PCP - General 07/28/21 Brittany Moss LSW Scroll Machine Operator 12/02/20
--- OUTSIDE RECORDS SUMMARY | 2024-09-01 20:33 | XMS_ITS | Encounter Summary ---
Author Organization [facility] Address [address] [place] [address] Care Team Providers Care Manager Card Name Role Phone Ajay Brittany HADLEY Unavailable Unavailable Khushi Hsu COMPUTER OPERATOR Primary Care Provider [phone] Source Comments In the event this information is protected by the Federal Confidentiality of Alcohol and Drug AbusePatient Records regulations: The Federal rules restrict any use of the information to criminally investigate or prosecute any alcohol or drug abuse patient.[facility] Encounter Details Date Type Department Care Team (Late st Contact Info) Description 08/18/2022 Patient Msg Hematology/Oncology [address] [place] [address] [place] [address] [place], [place] [id number] Request an Appointment Social History Tobacco Use Types Packs/Day Years [...] (1-100), lower number is lower ri sk 53 04/19/2022 State Score (1-10), lower number is lower risk N ot on file 04/19/2022 Data from: https://www.neighborhoodatlas.medicine.[facility].edu/. Last address used for calculation [address] 04/19/2022 Comments No Sex and Gender Information Value [...] Assessment Author No 10/07/2020 5:48 PM Ally Ocasio, RN * Do you have difficulty dressing [...] PM EDT Visit (SP) Office Hematology/Oncology [address] [place] [address] Wu Bustos MD [address] [place] [address] [place] [address] NEW PATIENT ADDED ON PER DR BUSTOS // AGREED TO SEE PATIENT documented as of this encounter Visit Diagnoses Not on filedocumented in this encounter Care Teams Manager Card Relationship Specialty Start Date End Date Khushi Hsu NP [address] [place] [address] PCP - General 07/28/21 Brittany Moss LSW Vocational Horticulture Instructor 12/02/20 documented as of this encounter
--- OUTSIDE RECORDS SUMMARY | 2024-09-01 20:33 | XMS_ITS | Encounter Summary ---
Author Organization [facility] Address [address] [place] [address] Care Team Providers Care Hand Sprayer Name Role Phone Pcp, Betina PHOTOGRAPHIC ARTIST Primary Care Provider UnavailMercedes Medrano CNP Primary Care Provider [phone] Brittany Moss PBX TECHNICIAN Unavailable Unavailable Khushi Hsu NP Primary Care Provider [phone] Source Comments In the event this information is protected by the Federal Confidentiality of Alcohol and Drug AbusePatient Records regulations: The Federal rules restrict any use of the information to criminally investigate or prosecute any alcohol or drug abuse patient.[facility] Encounter Details Date Type Department Care Team (Late st Contact Info) Description 10/05/2020 Surgical Case HOSP MAIN H060 [address] [place] [address] Prashanth Tobar MD [address] [place] [address] Social History Tobacco Use Types Packs/Day Years [...] N ot on file 03/01/2020 Data from: https://www.neighborhoodatlas.medicine.[facility].edu/. Last address used for calculation Not on [...] have Coronavirus / COVID-19? No / Unsure 10/05/2020 8:11 AM EDT documented as of this encounter Functional [...] Author No 01/05/2020 4:41 PM EDT Milagros Michelel (Rn), RN * Because of a physical, [...] Entry Date Author No 01/05/2020 4:41 PM EDT Milagros Michelle (Rn), RN documented in this encounter Plan of Treatment Upcoming Encounters Date Type Department Care Team (Latest Contact Info) Description 10/24/2024 3:00 PM EDT Visit (SP) Office Hematology/Oncology [address] [place] [address] [place] [address] Wu Bustos MD [address] [place] [address] [place] [address] NEW PATIENT ADDED ON PER DR BUSTOS // AGREED TO SEE PATIENT documented as of this encounter Visit Diagnoses Not on filedocumented in this encounter Care Teams Hand Sprayer Relationship Specialty Start Date End Date PcpBetina APRN PCP - General 08/28/20 11/11/20 Mercedes Tabor, DIRECTOR NEWS [address] [facility] [place] [address] PCP - General Internal Medicine 11/12/20 07/27/21 Khushi Hsu, DINORAH [address], [facility] [place] [address] PCP - General 07/28/21 Brittany Moss LEONIE Geological Engineer 12/02/20 documented as of this encounter
--- OUTSIDE RECORDS SUMMARY | 2024-09-01 20:33 | XMS_ITS | Encounter Summary ---
Author Organization [facility] Address [address] [place] [address] Care Team Providers Care Dowel Sticker Operator Name Role Phone Ajay Brittany HADLEY Unavailable Unavailable Khushi Hsu SOCIAL WORK PROGRAM COORDINATOR Primary Care Provider [phone] Source Comments In the event this information is protected by the Federal Confidentiality of Alcohol and Drug AbusePatient Records regulations: The Federal rules restrict any use of the information to criminally investigate or prosecute any alcohol or drug abuse patient.[facility] Encounter Details Date Type Department Care Team (Late st Contact Info) Description 12/27/2022 [place] [address] Provider, [facility] MRI Screening Questionnaire Completion Required [...] is lower risk 3 10/31/2022 Data from: https://www.neighborhoodatlas.medicine.[facility].edu/. Last address used for calculation [address] 10/31/2022 Comments No Sex and Gender [...] No 10/07/2020 5:48 PM Ally Ocasio RN documented as of this encounter Mental [...] 3:00 PM EDT Visit (SP) Office Hematology/Oncology [address] [place] [address] [place] [address] Wu Bustos MD [address] [place] [address] [place] [address] NEW PATIENT ADDED ON PER DR BUSTOS // AGREED TO SEE PATIENT documented as of this encounter Visit Diagnoses Not on filedocumented in this encounter Care Teams Dowel Sticker Operator Relationship Specialty Start Date End Date Khushi Hsu SOCIAL WORK PROGRAM COORDINATOR [address] [place] [address] PCP - General 07/28/21 Brittany Moss LSW Lead Sql Developer 12/02/20 documented as of this encounter
--- OUTSIDE RECORDS SUMMARY | 2024-09-01 20:33 | XMS_ITS | Encounter Summary ---
Author Organization [facility] Address [address] [place] [address] Care Team Providers Care Commercial Sales Manager Name Role Phone Ajay Brittany HADLEY Unavailable Unavailable Khushi Hsu PROCESSING TALC AND BORATE SUPERVISOR Primary Care Provider [phone] Source Comments In the event this information is protected by the Federal Confidentiality of Alcohol and Drug AbusePatient Records regulations: The Federal rules restrict any use of the information to criminally investigate or prosecute any alcohol or drug abuse patient.[facility] Encounter Details Date Type Department Care Team (Late st Contact Info) Description 11/28/2022 [place] [address] Provider, Ccf MRI Screening Questionnaire Completion Required [...] is lower risk 3 10/31/2022 Data from: https://www.neighborhoodatlas.medicine.[facility].edu/. Last address used for calculation [address] [...] Assessment Author No 10/07/2020 5:48 PM Ally cOasio RN documented as of this encounter Mental [...] 3:00 PM EDT Visit (SP) Office Hematology/Oncology [address] [place] [address] [place] [address] Wu Bustos MD [address] [place] [address] [place] [address] NEW PATIENT ADDED ON PER DR BUSTOS // AGREED TO SEE PATIENT documented as of this encounter Visit Diagnoses Not on filedocumented in this encounter Care Teams Commercial Sales Manager Relationship Specialty Start Date End Date Khushi Hsu PROCESSING TALC AND BORATE SUPERVISOR [address] [place] [address] PCP - General 07/28/21 Brittany Moss LSW Planning Manager 12/02/20 documented as of this encounter
--- OUTSIDE RECORDS SUMMARY | 2024-09-01 20:33 | XMS_ITS | Clinical Summary ---
Author Organization [facility] [facility] tem Address [id number] [address] [place] [address] Care Team Providers Care Footwear Sales Coordinator Name Role Phone Services, [facility] Primary Care Provider Allergies Active Allergy Reactions Criticality Noted Date Comments Adhesive Tape-Silicones 03/12/2017 Medications * This document contains information received from the source organization and may not represent a complete record from that organization. lisinopriL (PRINIVIL,ZESTRIL) 2.5 mg tablet Take 1 tablet (2.5 mg total) by mouth in the morning. Active clotrimazole (LOTRIMIN) 1 % cream Apply to affected area 2 times daily 24 g 1 Active benzonatate (TESSALON) 100 mg capsule Take 1 capsule (100 mg total) by mouth every 8 (eight) hours. 21 capsule 1 Active ondansetron ODT (ZOFRAN-ODT) 4 mg disintegrating tablet Dissolve 1 tablet (4 mg total) on tongue every 8 (eight) hours as needed for nausea for up to 10 doses. 10 tablet 1 Active ibuprofen (ADVIL,MOTRIN) 800 mg tablet Take 1 tablet (800 mg total) by mouth in the morning and 1 tablet (800 mg total) at noon and 1 tablet (800 mg total) before bedtime. 21 tablet 2 Active baclofen (LIORESAL) 10 mg tablet 1 tablet as needed Orally Twice a day 3 Active hydroCHLOROthiazide (HYDRODIURIL) 12.5 mg tablet 1 tablet in the morning Orally Once a day for 30 days 3 Active traMADoL (ULTRAM) 50 mg tablet 1 tablet as needed Orally once a day for 7 days 3 Active meloxicam (MOBIC) 15 mg tablet Take 1 tablet (15 mg total) by mouth in the morning. Active lidocaine (LIDODERM) 5 % Place 1 patch on the skin daily. Remove & Discard patch within 12 hours or as directed by MD 30 patch 3 Active modafiniL (PROVIGIL) 200 mg tabletIndications:E xcessive daytime sleepiness Take 1 tablet (200 mg total) by mouth in the morning. 90 tablet 4 Active citalopram (CeleXA) 20 mg tabletIndications:M ajor depressive disorder, recurrent episode, moderate (CMS-HCC),Generaliz ed anxiety disorder Take 1 tablet (20 mg total) by mouth in the morning. 90 tablet 4 Active citalopram (CeleXA) 10 mg tabletIndications:M ajor depressive disorder, recurrent episode, moderate (CMS-HCC),Generaliz ed anxiety disorder TAKE 1 TABLET BY MOUTH ONCE DAILY . TAKE WITH 20MG TABLET TO EQUAL 30MG DAILY DOSE. 90 tablet 4 Active Active Problems Problem Noted Date Diagnosed Date Excessive daytime sleepiness 06/10/2021 Weakness 12/24/2019 Panic attacks 03/08/2019 Insomnia due to psychological stress 06/22/2017 Major depressive disorder, recurrent episode, mo derate 11/11/2016 Generalized anxiety disorder 11/11/2016 Resolved Problems Problem Noted Date Diagnosed Date Resolved Date Insomnia due to other mental disorder 11/11/2016 06/22/2017 Immunizations No known immunizations Social History Tobacco Use Types Packs/Day Years Used Date Smoking Tobacco: Never Smokeless Tobacco: Never Tobacco Cessation:Counseling Given: Not Answered Alcohol Use Standard Drinks/Week Comments No 0 (1 standard drink = 0.6 oz pur e alcohol) Social Connection and Isolation Panel [NHANES] A nswer Date Recorded In a typical week, how many times do you talk on the phone with family, friends, or neighbors? Three times a week 12/24/2019 How often do you get togethe r with friends or relatives? Three times a week 12/24/2019 How often do you attend [facility] or temple services? Never 12/24/2019 Do you belong to any clubs o r organizations such as mu-ism groups, unions, fraternal or athletic groups, or school groups? No 12/24/2019 How often do you attend meet ings of the clubs or organizations you belong to? Never 12/24/2019 Are you , , di vorced, , never , or living with a partner? 12/24/2019 Overall Financial Resource Strain (CARDIA) Answe r Date Recorded How hard is it for you to pa y for the very basics like food, housing, medical care, and heating? Not hard at all 12/24/2019 PHQ-2 Answer Date Recorded Total Score 0 12/24/2019 PRAPARE - Transportation Answer Date Re corded In the past 12 months, has l ack of transportation kept you from medical appointments or from getting medications? No 11/26 In the past 12 months, has l ack of transportation kept you from meetings, work, or from getting things needed for daily living? No 12/24/2019 Childcare Answer Date Recorded Do problems getting child ca re make it difficult for you to work or study? No 12/24/2019 Employment Answer Date Recorded Do you need help finding a [employer] career center and/or a training program? No 12/24/2019 Hunger Screening Answer Date Recorded Within the past 12 months we worried whether our food would run out before we got money to buy more. Never True 12/20/2022 Within the past 12 months th e food we bought just didn't last and we didn't have money to get more. Never True 12/20/2022 Purpose - Life Answer Date Recorded Purpose and direction in life Unknown Comments No Sex and Gender Information Value Date Recorded Sex Assigned at Female 03/09/2022 8:42 AM EST Legal Sex Female 11:33 AM EDT Gender Identity Female 03/09/2022 8:42 AM EST Sexual Orientation Straight 03/09/2022 8: 42 AM EST Last Filed Vital Signs Vital Sign Reading Time Taken Comments Blood Pressure 164/80 12/04/2023 4:00 PM EDT Pulse 70 12/04/2023 4:00 PM EDT Temperature 36.3 C (97.3 F) 12/04/2023 12:11 PM EDT Respiratory Rate 18 12/04/2023 4:00 PM EDT Oxygen Saturation 98% 12/04/2023 4:00 PM EDT Inhaled Oxygen Concentration - - Weight 70.8 kg (156 lb) 12/04/2023 12:11 PM EDT Height 160 cm (5' 3 ) 12/04/2023 12:11 PM EDT Body Mass Index 27.63 12/04/2023 12:11 PM EDT Plan of Treatment Upcoming Encounters Date Type Department Care Team (Late st Contact Info) Description 09/25/2024 2:45 PM EDT Appointment [facility] - Mammography/DEXA Imaging [address] [place] [address] Health Maintenance Due Date Last Done Comments Depression Screening 1993 Adult BMI Follow Up Plan 09/03/1999 DTaP,Tdap and Td Vaccines (1 - Tdap) 2000 Tobacco Screening 07/13/2024 07/14/2023 Pap Smear 11/11/2024 11/11/2021, 11/11/2021 Influenza Vaccine 11/25/2024 Adult BMI Screening 12/03/2024 12/04/2023 Medical Devices Not on file Procedures Procedure Name Priority Date/Time Associated Diagnosis Comments PAP SMEAR Routine 11/11/2021 8:06 AM EDT Encounter for screening for malignant neoplasm of cervix Encounter for screening for human papillomavirus (HPV) from Last 3 Months or Most Recently Relevant to Health Maintenance Results * Pap Smear (11/11/2021 8:06 AM EDT) 11/11/2021 8:06 AM EDT 11/11/2021 8:08 AM EDT Narrative COPATH - 11/21/2021 10:02 AM EDT [facility] [address] [place] [address] Gynecologic Cytology Consultation Patient Name:AMBER WILDER:1980 (Age: 41)Gender:FTaken:11/11/2021eported:11/21/2021hysician(s):Radha López M.D. ([phone])Copy To: Rec. #:[id number]: #[id number] Final Cytologic Interpretation ThinPrep Pap Test (Not otherwise specified): Satisfactory for evaluation. A transformation zone component is present. NEGATIVE FOR INTRAEPITHELIAL LESION OR MALIGNANCY. d/11/21/2021 Interpretation performed at [facility], [address] [place] [address], License number: [id number]. Electronically Signed Out By KAYA Magana, (ASCP) Date of Last Menstrual Period: (None Given) Other Clinical Conditions: Z12.4 Screening for malignant neoplasm of cervix Z11.51 Screening for HPV Source of Specimen ThinPrep Pap Test (Not otherwise specified) Thin Prep Pap (GRAPHITE DISK ASSEMBLER) Fee Code(s): G0145 Radha López MD PATHOLOGY/CYTOLOGY ORDERABLES nal Result Performing Organization Address City/State/[facility] Co de Phone Number COPATH from Last 3 Months or Most Recently Relevant to Health Maintenance Insurance [employer] AUTO INSURANCE [facility] MED[facility] Advance Directives * Full Code (Latest Code Status on File) Date Activated Date Inactivated Comments 12/24/2019 10:45 AM 12/25/2019 1:47 AM Care Teams Footwear Sales Coordinator Relationship Specialty Start Date End Date Services, [facility] [address] [place], [place] PCP - General Family Medicine 12/04/23
[2024-09-01] MEDS: POTASSIUM BICARBONATE/CIT 25 MEQ TABLET EFF 50 MEQ PO (20:52)
[2024-09-02] MEDS: IBUPROFEN 400 MG TABLET 800 MG PO (03:49)
[2024-09-02 03:56] LABS: Ethanol 49 mg/dL
[2024-09-02 04:10] VITALS: BP 170/102; PULSE 61; O2SAT 100
--- NOTE | 2024-09-02 04:10 | PC.NURSE ---
Patient woke up and is much more alert, calm and cooperative. She seems to be much more sober at this time. She walks to the bathroom with the constant observer and back to the room without difficulty. She mentions that she has a headache, so Dr. Lazcano is asked for an order for Motrin. A set of vitals are obtained, the patient is hypertensive and she says that she has not taken her medication for a few days. She is not feeling suicidal at this time, she understands that she will still need to stay and speak to P in the morning. She is given back her phone at this time since she is more able to make good decisions and she would like to call her boyfriend once it is charged.
--- NOTE | 2024-09-02 08:16 | PC.NURSE ---
spoke to Kirti with [facility] & she will be having Germaine call back to assess patient.
--- NOTE | 2024-09-02 09:28 | PC.NURSE ---
[facility] sent over safety plan details. pt states she feels safe to go home and denies any kind of suicidal or homocidal ideations. she has an apt tomorrow morning with community health counseling
[2024-09-02 10:11] VITALS: BP 176/95; O2SAT 98
== END 2024-09-02 10:05 | disposition home or self-care (01) ==
PROVIDERS: Personal Emergency Response Attendant; Emergency Provider Internal Medicine
DX: F32.A Depression, unspecified (principal); Z63.4 Disappearance and death of family member; R45.851 Suicidal ideations; F41.9 Anxiety disorder, unspecified; F10.10 Alcohol abuse, uncomplicated; Y90.7 Blood alcohol level of 200-239 mg/100 ml
CPT/HCPCS: 36415; 80053; 80179; 80307; 80320; 80329; 81001; 84703; 85025; 93005; 99284; J1200

== ENCOUNTER 2024-09-08 06:01 | Emergency (ER) | payer MEDICAID, SELFPAY ==
--- OUTSIDE RECORDS SUMMARY | 2024-08-27 11:30 | XMS_ITS ---
Author Organization [facility] vices Address [address] [place], [place] [id number] Care Team Providers Care Planning Analyst Name Role Phone Sierra Savage Unavailable [phone] LinhKelvin cosbyi Unavailable [phone] REASON FOR VISIT htn Social History Sex Assigned At : Social History Observation Description Sex Assigned At Female Encounters Encounter Location Date Provider Diagnosis Third [address] [place] [address] Avenue, [facility], [place] [address] 08/27/2024 Meche Linh Plan Of Treatment No Information Progress Notes * Hallie WILDER MDOB:[birth year] (44 yo F)Acc No.[id number]:08/27/2024 Medical Note Patient: Lorena Hallie VALLE Provider: Mala Melton MD :1980 A ge:43 Y S ex:Female Date:08/27/2024 Address:[address] [place], [place] [id number] Subjective: * Chief Complaints: * 1 . Htn. * Medical History: Objective: * Vitals: Assessment: Plan: * Treatment: * Billing Information: * Visit Code: * Procedure Codes: * Electronic signature of Richa Melton MD on 09/08/2024 at 06:07 AM EDT Sign off status: Pending * Provider: Mala Melton MD Date: 0 08/27/2024 Generated for Printi ng/Faquang/eTransmitting on: 0 09/08/2024 06:07 AM EDT
--- OUTSIDE RECORDS SUMMARY | 2024-09-08 06:07 | XMS_ITS | Clinical Summary ---
Author Organization [facility] tem Address [id number] [address] [place] [address] Care Team Providers Care Drying Frame Operator Name Role Phone Services, [facility] Primary Care Provider Allergies Active Allergy Reactions [...] week 12/24/2019 How often do you attend [facility] or spiritism services? Never 12/24/2019 Do you belong to any clubs o r organizations such as sikh groups, unions, fraternal or athletic groups, or [...] Recorded Do you need help finding a [employer] career center and/or a training program? [...] Info) Description 09/25/2024 2:45 PM EDT Appointment [facility] - Mammography/DEXA Imaging [address] [place] [address] Health Maintenance Due Date Last [...] Narrative COPATH - 11/21/2021 10:02 AM EDT [facility] [address] [place] [address] Gynecologic Cytology Consultation Patient Name:AMBER WILDER:1980 (Age: 41)Gender:FTaken:11/11/2021eported:11/21/2021hysician(s):Radha López M.D. ([phone])Copy To: Rec. #:[id number]: #[id number] Final Cytologic Interpretation ThinPrep Pap Test (Not otherwise specified): Satisfactory for evaluation. A transformation zone component is present. NEGATIVE FOR INTRAEPITHELIAL LESION OR MALIGNANCY. d/11/21/2021 Interpretation performed at [facility], [address] [place] [address], License number: [id number]. Electronically Signed Out By KAYA Magana, (ASCP) Date of Last Menstrual Period: (None Given) Other Clinical Conditions: Z12.4 Screening for malignant neoplasm of cervix Z11.51 Screening for HPV Source of Specimen ThinPrep Pap Test (Not otherwise specified) Thin Prep Pap (OPERATOR ELECTRONIC WARFARE) Fee Code(s): G0145 Radha López MD PATHOLOGY/CYTOLOGY ORDERABLES nal Result Performing Organization Address City/State/[facility] Co de Phone Number COPATH from Last 3 Months or Most Recently Relevant to Health Maintenance Insurance [employer] [employer] AUTO INSURANCE [facility] MEDICAID Advance Directives * Full Code (Latest Code Status on File) Date Activated Date Inactivated Comments 12/24/2019 10:45 AM 12/25/2019 1:47 AM Care Teams Drying Frame Operator Relationship Specialty Start Date End Date Services, [facility] [address] [place], [place] PCP - General Family Medicine 12/04/23
--- OUTSIDE RECORDS SUMMARY | 2024-09-08 06:07 | XMS_ITS | Encounter Summary ---
Author Organization [facility] Address [address] [place] [address] Care Team Providers Care Whiteprinting Machine Operator Name Role Phone Ajay Brittany HADLEY Unavailable Unavailable Khushi Hsu CLOCKMAKER APPRENTICE Primary Care Provider [phone] Source Comments In the event this information is protected by the Federal Confidentiality of Alcohol and Drug AbusePatient Records regulations: The Federal rules restrict any use of the information to criminally investigate or prosecute any alcohol or drug abuse patient.[facility] Encounter Details Date Type Department Care Team (Late st Contact Info) Description 11/28/2022 [place] [address] Provider, [facility] MRI Screening Questionnaire Completion Required [...] is lower risk 3 10/31/2022 Data from: https://www.neighborhoodatlas.medicine.[facility].edu/. Last address used for calculation [address] 10/31/2022 Comments No Sex and Gender [...] 3:00 PM EDT Visit (SP) Office Hematology/Oncology [address] [place] [address] [place] [address] Wu Bustos MD [address] [place] [address] [place] [address] NEW PATIENT ADDED ON PER DR BUSTOS // AGREED TO SEE PATIENT documented as of this encounter Visit Diagnoses Not on filedocumented in this encounter Care Teams Whiteprinting Machine Operator Relationship Specialty Start Date End Date Khushi Hus CLOCKMAKER APPRENTICE [address] [place] [address] PCP - General 07/28/21 Brittany Moss LSW Machine Heddle Cleaner 12/02/20 documented as of this encounter
--- OUTSIDE RECORDS SUMMARY | 2024-09-08 06:07 | XMS_ITS | Encounter Summary ---
Author Organization [facility] Address [address] [place] [address] Care Team Providers Care Lens Molder Name Role Phone Ajay Brittany NELSONW Unavailable Unavailable Khushi Hsu SCIENTIFIC RECRUITER Primary Care Provider [phone] Source Comments In the event this information is protected by the Federal Confidentiality of Alcohol and Drug AbusePatient Records regulations: The Federal rules restrict any use of the information to criminally investigate or prosecute any alcohol or drug abuse patient.[facility] Encounter Details Date Type Department Care Team (Late st Contact Info) Description 08/18/2022 Patient Msg Hematology/Oncology [address] [place] [address] [place] [address] [place], [place] [id number] Request an Appointment Social History Tobacco Use [...] N ot on file 04/19/2022 Data from: https://www.neighborhoodatlas.medicine.[facility].edu/. Last address used for calculation [address] 04/19/2022 Comments No Sex and Gender [...] PM EDT Visit (SP) Office Hematology/Oncology [address] [facility] [address] [place] [address] uW Bustos MD [address] [place] [address] [place] [address] NEW PATIENT ADDED ON PER DR BUSTOS // AGREED TO SEE PATIENT documented as of this encounter Visit Diagnoses Not on filedocumented in this encounter Care Teams Lens Molder Relationship Specialty Start Date End Date Khushi Hsu NP [address] [place] [address] PCP - General 07/28/21 Brittany Moss LSW Stockfeed Miller 12/02/20 documented as of this encounter
--- OUTSIDE RECORDS SUMMARY | 2024-09-08 06:07 | XMS_ITS | Encounter Summary ---
Author Organization [facility] Address [address] [place] [address] Care Team Providers Care Survey Field Technician Name Role Phone Ajay Brittany HADLEY Unavailable Unavailable Khushi Hsu HELPDESK SPECIALIST Primary Care Provider [phone]- [phone] Source Comments In the event this information is protected by the Federal Confidentiality of Alcohol and Drug AbusePatient Records regulations: The Federal rules restrict any use of the information to criminally investigate or prosecute any alcohol or drug abuse patient.[facility] Encounter Details Date Type Department Care Team (Late st Contact Info) Description 12/27/2022 [place] [address] Provider, [facility] MRI Screening Questionnaire Completion Required [...] is lower risk 3 10/31/2022 Data from: https://www.neighborhoodatlas.medicine.[facility].edu/. Last address used for calculation [address] 10/31/2022 Comments No Sex and Gender [...] 3:00 PM EDT Visit (SP) Office Hematology/Oncology [address] [place] [address] [place] [address] Wu Bustos MD [address] [place] [address] [place] [address] NEW PATIENT ADDED ON PER DR BUSTOS // AGREED TO SEE PATIENT documented as of this encounter Visit Diagnoses Not on filedocumented in this encounter Care Teams Survey Field Technician Relationship Specialty Start Date End Date Khushi Hsu HELPDESK SPECIALIST [address] [place] [address] PCP - General 07/28/21 Brittany Moss LSW Oil Gas And Pipe Tester 12/02/20 documented as of this encounter
--- OUTSIDE RECORDS SUMMARY | 2024-09-08 06:07 | XMS_ITS | Encounter Summary ---
Author Organization [facility] Address [address] [place] [address] Care Team Providers Care Bisque Finisher Name Role Phone SharonaAugieharley ENGLAND Primary Care Provider [phone] Brittany Moss CHILD DAY CARE CENTER WORKER Unavailable Unavailable Khushi Hsu NP Primary Care Provider [phone] Source Comments In the event this information is protected by the Federal Confidentiality of Alcohol and Drug AbusePatient Records regulations: The Federal rules restrict any use of the information to criminally investigate or prosecute any alcohol or drug abuse patient.[facility] Encounter Details Date Type Department Care Team (Late st Contact Info) Description 04/21/2021 [place] [address] Provider, [facility] MRI Screening Questionnaire Completion Required [...] N ot on file 03/01/2020 Data from: https://www.neighborhoodatlas.medicine.[facility].edu/. Last address used for calculation Not on [...] PM EDT Visit (SP) Office Hematology/Oncology [address] [address] Wu Bustos MD [address] [place] [address] [place] [address] NEW PATIENT ADDED ON PER DR BUSTOS // AGREED TO SEE PATIENT documented as of this encounter Visit Diagnoses Not on filedocumented in this encounter Care Teams Bisque Finisher Relationship Specialty Start Date End Date Mercedes Tabor CNP [address] [place] [address] PCP - General Internal Medicine 11/12/20 07/27/21 Khushi Hsu STRINGER UP SOLDERING MACHINE [address] [place] [address] PCP - General 07/28/21 Brittany Moss LSW Dean Of Girls 12/02/20 documented as of this encounter
--- OUTSIDE RECORDS SUMMARY | 2024-09-08 06:07 | XMS_ITS | Encounter Summary ---
Author Organization [facility] Address [address] [place] [address] Care Team Providers Care Machine Operator Hay Stacker Name Role Phone Pcp, Bet[facility] PHARMACY GENERAL MANAGER Primary Care Provider UnavailMercedes Medrano CNP Primary Care Provider [phone] Brittany Moss DRUGLESS DOCTOR Unavailable Unavailable Khushi Hsu NP Primary Care Provider [phone] Source Comments In the event this information is protected by the Federal Confidentiality of Alcohol and Drug AbusePatient Records regulations: The Federal rules restrict any use of the information to criminally investigate or prosecute any alcohol or drug abuse patient.[facility] Encounter Details Date Type Department Care Team (Late st Contact Info) Description 10/05/2020 Surgical Case HOSP MAIN H060 [address] [place] [address] Prashanth Tobar MD [address] [place] [address] Social History Tobacco Use Types [...] N ot on file 03/01/2020 Data from: https://www.neighborhoodatlas.medicine.[facility].edu/. Last address used for calculation Not on [...] 3:00 PM EDT Visit (SP) Office Hematology/Oncology [address] [place] [address] [place] [address] Wu Bustos MD [address] [place] [address] [place] [address] NEW PATIENT ADDED ON PER DR BUSTOS // AGREED TO SEE PATIENT documented as of this encounter Visit Diagnoses Not on filedocumented in this encounter Care Teams Machine Operator Hay Stacker Relationship Specialty Start Date End Date PcpBetina APRN PCP - General 08/28/20 11/11/20 Mercedes Tabor, SCCM ADMINISTRATOR [address] [facility] [place] [place] [address] PCP - General Internal Medicine 11/12/20 07/27/21 Khushi Hsu, DINORAH [address], [facility] [place] [address] PCP - General 07/28/21 Brittany Moss LEONIE Solutions Architect Consultant 12/02/20 documented as of this encounter
--- OUTSIDE RECORDS SUMMARY | 2024-09-08 06:07 | XMS_ITS | Encounter Summary ---
Author Organization [facility] Address [address] [place] [address] Care Team Providers Care Rfid Technician Name Role Phone Pcp, Betina PRODUCTION PAINTER Primary Care Provider UnavailMercedes Medrano CNP Primary Care Provider [phone] Brittany MossW Unavailable Unavailable Khushi Hsu NP Primary Care Provider [phone] Source Comments In the event this information is protected by the Federal Confidentiality of Alcohol and Drug AbusePatient Records regulations: The Federal rules restrict any use of the information to criminally investigate or prosecute any alcohol or drug abuse patient.[facility] Encounter Details Date Type Department Care Team (Late st Contact Info) Description 09/15/2020 Patient Msg Spine [place] [address] [place] [address] Latisha Aponte LSW Making contact [...] N ot on file 03/01/2020 Data from: https://www.neighborhoodatlas.medicine.[facility]/. Last address used for calculation Not [...] 3:00 PM EDT Visit (SP) Office Hematology/Oncology [address] [place] [address] [address] [place], [place] [id number] Wu Bustos MD [address] [place] [address] [place] [address] NEW PATIENT ADDED ON PER DR BUSTOS // AGREED TO SEE PATIENT documented as of this encounter Visit Diagnoses Not on filedocumented in this encounter Care Teams Rfid Technician Relationship Specialty Start Date End Date Pcp, LES Moffett PCP - General 08/28/20 11/11/20 Mercedes Tabor, LEARNING OFFICER [address] [facility] [place] [address] PCP - General Internal Medicine 11/12/20 07/27/21 Khushi Hsu, GEOTHERMAL OPERATIONS MANAGER [address] [place] [address] PCP - General 07/28/21 Brittany Moss LSW Electrician Maintenance 12/02/20 documented as of this encounter
--- OUTSIDE RECORDS SUMMARY | 2024-09-08 06:07 | XMS_ITS | Clinical Summary ---
Author Organization [facility] Address [address] [place] [address] Care Team Providers Care Loop Tacker Name Role Phone Brittany Moss Unavailable Unavailable Khushi Hsu JUMPBASTING ARMHOLE BASTER Primary Care Provider [phone] Allergies No known active allergies Medications clonazePAM [...] PLAN: -PT/OT continue _ MRI reviewed with spoqh-fjoqq-spaqssoiv enhancement -observe till next wk -Out of bed to chair for meals. -Ambulate pt 3-4 x daily as able. -Monitor: signs, symptoms, disease progression, disease regression. -Evaluate: test results, medication effectiveness, response to treatment. -Pain control: analgesics titrated per consultation with Dr. Prashanth Tobar -Plan discussed with Dr. Prashanth TAPIA planning. Planned Date of Discharge: Approximately: Monday Discharge Disposition: [facility] Assessment & Plan (01/02/2020 10:47 AM EDT): [...] offered to set up primary care at [facility] but patient prefers to see home [...] is lower risk 3 10/31/2022 Data from: https://www.neighborhoodatlas.medicine.[facility]/. Last address used for calculation [address] 10/31/2022 Comments No Sex and Gender [...] 3:00 PM EDT Visit (SP) Office Hematology/Oncology [address] [place] [address] [place] [address] Wu Bustos MD [address] [place] [address] [place] [address] NEW PATIENT ADDED ON PER DR BUSTOS // AGREED TO SEE PATIENT Health Maintenance Due Date Last Done Comments Annual PCP Team Chronic Disease Visit 09/03/1999 Depression Screening 09/03/1999 DTaP,Tdap,Td Vaccine (1 - Tdap) 2000 Hepatitis B Vaccine (1 of 3 - 19+ 3-dose series) 09/02 Cervical Cancer Screening 2002 Mammogram Screening 2021 Covid-19 Vaccine ( - season) 2023 Influenza Vaccine (Season Ended) 2024 [...] Reactive Non Reactive 12/29/2019 2:30 PM EDT [facility] HIV-1/2 AB Test Not Indicated 12/29/2019 2:30 PM EDT [facility] HIV Interpretation Negative 12/29/2019 2:30 PM EDT [facility] Comment: No evidence of HIV-1 or HIV-2 infection. Should recent infection be suspected, repeat testing may be considered 2-3 weeks after this draw. HIV Information: [place] Rev. Code 3701.243(E): This information has been [...] us Khushi Marrufo MD LABORATORY Final Result [facility] [address] [place] [address] [facility] [address] [place] [address] * HEP REMOTE PANEL BL (06/08/2006 6:47 PM EDT) Hep B Core Ab, Total Negative NEG [facility] Hep C Antibody IA Negative NEG [facility] HBsAg Negative NEG [facility] Hep B Surface Ab, Qual Negative NEG [facility] Comment: A negative Hepatitis B [...] Tomasa Knox MD LABORATORY Final Res ult [facility] [address] [place] [address] from Last 3 Months or Most Recently Relevant to Health Maintenance Insurance [employer] [place] Advance Directives Documents on File Type Date Recorded Patient Reception Clerk Expl anation Advance Directive(s) 12/10/2020 11:15 AM A dvance Directives Care Teams Loop Tacker Relationship Specialty Start Date End Date Khushi Hsu, JUMPBASTING ARMHOLE BASTER [address], [facility] [place] [address] PCP - General 07/28/21 Brittany Moss LSW Boat Canvas Maker And Installer 12/02/20
--- OUTSIDE RECORDS SUMMARY | 2024-09-08 06:07 | XMS_ITS | Encounter Summary ---
Author Organization [facility] Address [address] [place] [address] Care Team Providers Care Newspaper Columnist Name Role Phone Unavailable Primary Care Provider Unavailabl e Encounter Details Date Type Department Care Team (Late st Contact Info) Description 09/01/2024 Clinisync Result Encounter [facility] External Department Unsolicited Rupesh Herman PA [address] [place] [address] Social History Tobacco Use Types Packs/Day Years Used Date Smoking Tobacco: Never Assessed Comments Unknown Sex and Gender Information Value Date Recorded Sex Assigned at Not on file Legal Sex Female 7:11 PM EDT Gender Identity Not on file Sexual Orientation Not on file documented as of this encounter Plan of Treatment Not on file documented as of this encounter Procedures Procedure Name Priority Date/Time Associated Diagnosis Comments ECG 12-LEAD 09/01/2024 7:43 PM EDT documented in this encounter Results * ECG 12-LEAD (09/01/2024 7:43 PM EDT) Anatomical Region Laterality Modality Other 09/01/2024 7:43 PM EDT Narrative 09/01/2024 8:10 PM EDT The [address] [address] Electrocardiograph Report Signed Patient: AMBER MIRZA MR#: [id number] : 1980 Acct:[id number] Age/Sex: 43 / F ADM Date: Loc: ER Attending Dr: Ordering Physician: Rupesh Herman Date of Service: 09/01/24 Procedure(s): ECG 12 lead Accession Number(s): [id number] cc: The [facility] Test Date: 2024-09-01 Pat Name: AMBER MIRZA Department: Room: - Gender: Female Crochet Beader: : 1980 Requested By: [id number] Order Number: [id number] Reading MD: KITA CHEEMA M.D. Measurements Intervals [place] Rate: 82 P: 56 OK: 146 QRS: 38 QRSD: 80 T: 21 QT: 388 QTc: 427 Interpretive Statements 1100 Sinus rhythm 4564 Twave abnormality, possible lateral ischemia 4664 Twave abnormality, possible inferior ischemia 9150 abnormal ECG No previous ECG available for comparison Electronically Signed On 09-01-2024 20:09:53 EDT by KITA CHEEMA M.D. Dictated By: KITA CHEEMA Signed By: 09/01/242009 DD/ 42 TD/TT: Toppiece Cutter: Procedure Note Radiology, Radiologist, MD - 09/06/2024 [place] [address] Electrocardiograph Report Signed Patient: DANDRE MIRZA#: [id number] : 1980Acct:[id number] Age/Sex: 43 / FADM Date: Loc: ER Attending Dr: Ordering Physician: Rupesh Herman Date of Service: 09/01/24 Procedure(s): ECG 12 lead Accession Number(s): [id number] cc: The [facility] Test Date: 2024-09-01 Pat Name: AMBER MIRZA Department: Room: - Gender: Female Crochet Beader: : 1980 Requested By: [id number] Order Number: [id number] Reading MD: KITA CHEEMA M.D. Measurements Intervals [place] Rate: 82 P: 56 OK: 146 QRS: 38 QRSD: 80 T: 21 QT: 388 QTc: 427 Interpretive Statements 1100 Sinus rhythm 4564 Twave abnormality, possible lateral ischemia 4664 Twave abnormality, possible inferior ischemia 9150 abnormal ECG No previous ECG available for comparison Electronically Signed On 09-01-2024 20:09:53 EDT by KITA CHEEMA M.D. Dictated By: KITA CHEEMA Signed By:09/01/242009 DD/ 42 TD/TT: Toppiece Cutter: us Rupesh [facility] Final Resul t documented in this encounter Visit Diagnoses Not on filedocumented in this encounter
--- OUTSIDE RECORDS SUMMARY | 2024-09-08 06:07 | XMS_ITS | Encounter Summary ---
Author Organization [facility] Address [address] [place] [address] Care Team Providers Care Top Frame Maker Name Role Phone Massiel, Lorne E DO Primary Care Provider [phone] Pcp, Betina PROCESS LABORATORY SPECIALIST Primary Care Provider UnavailMercedes Medrano BICYCLE RACER Primary Care Provider [phone] Brittany Moss OYSTERMAN Unavailable Unavailable Khushi Hsu NP Primary Care Provider [phone] Source Comments In the event this information is protected by the Federal Confidentiality of Alcohol and Drug AbusePatient Records regulations: The Federal rules restrict any use of the information to criminally investigate or prosecute any alcohol or drug abuse patient.[facility] Encounter Details Date Type Department Care Team (Late st Contact Info) Description 01/01/2020 Surgical Case HOSP MAIN H060 [address] [place] [address] Prashanth Tobar MD [address] [place] [address] Social History Tobacco Use Types Packs/Day Years Used Date Smoking Tobacco: Never Assessed Overall Financial Resource Strain (CARDIA) Answe r Date Recorded How hard is it for you to pa y for the very basics like food, housing, medical care, and heating? Not hard at all 12/25/2019 Hunger Vital Sign Answer Date Recorded Within [...] things needed for daily living? No 12/25/2019 Comments No Sex and Gender Information Value [...] have Coronavirus / COVID-19? No / Unsure 12/25/2019 9:24 PM EDT documented as of this encounter Plan of Treatment Upcoming Encounters Date Type Department Care Team (Latest Contact Info) Description 10/24/2024 3:00 PM EDT Visit (SP) Office Hematology/Oncology [address] [place] [address] [place] [address] Wu Bustos MD [address] [place] [address] NEW PATIENT ADDED ON PER DR BUSTOS // AGREED TO SEE PATIENT documented as of this encounter Visit Diagnoses Not on filedocumented in this encounter Care Teams Top Frame Maker Relationship Specialty Start Date End Date Lorne Rankin DO PCP - General 02/28/06 08/27/20 Pcp, Betina, PROCESS LABORATORY SPECIALIST PCP - General 08/28/20 11/11/20 Mercedes Tabor, TOMÁS [address] [place] [address] PCP - General Internal Medicine 11/12/20 07/27/21 Khushi Hsu, PLATE CORRECTOR [address] [facility] [address] PCP - General 07/28/21 Brittany Moss LSW Tipple Worker 12/02/20 documented as of this encounter
[2024-09-08 06:14] VITALS: BP 185/100; PULSE 80; TEMP 36.7; O2SAT 96; BMI 28.5
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
[2024-09-08 08:15] VITALS: BP 178/92
== END 2024-09-08 08:49 | disposition home or self-care (01) ==
PROVIDERS: Emergency Provider Emergency Medicine
DX: F32.A Depression, unspecified (principal); F43.9 Reaction to severe stress, unspecified
CPT/HCPCS: 99283